=== PATIENT | female | born 1975 | race Caucasian/White ===

== ENCOUNTER → 2018-05-12 | Outpatient (CLI) | payer OTHER ==
--- NOTE | 2018-05-12 16:07 | KCIC ---
Right fingers radiograph 05/12/2018 12:00 AM INDICATION: Fall 3 weeks ago with dislocated third digit. COMPARISON: None available. TECHNIQUE: 5 views of the third digit are provided. FINDINGS: There is a avulsion fracture involving the posterior base of the middle phalanx of the third digit with intra-articular extension. There is regional soft tissue swelling. Bone mineralization is within normal limits. IMPRESSION: Avulsion fracture involving the posterior base of the middle phalanx of the third digit. Electronically signed by: Soraya Bonilla MD (05/12/2018 4:04 PM) [id number]
== END | disposition home or self-care (01) ==
LOC: KCIC 15:19
PROVIDERS: ATTEND Physician Assistant Medical
DX: S62.622A Displaced fracture of middle phalanx of right middle finger, initial encounter for closed fracture (principal); X58.XXXA Exposure to other specified factors, initial encounter; Y93.89 Activity, other specified; Y92.89 Other specified places as the place of occurrence of the external cause; Y99.8 Other external cause status
CPT/HCPCS: 73140